=== PATIENT | male | born 1985 | race Caucasian/White ===

== ENCOUNTER 2017-05-15 09:36 | Emergency (ER) | payer MEDICAID, OTHER ==
[2017-05-15 10:01] VITALS: TEMP 98.1
--- NOTE | 2017-05-15 10:09 | C.PDOC ---
History Of Present Illness RECUR L LOWER DENTAL PAIN SINCE YEST. PS PREV DX W IMPACTED WISDOM TOOTH BUT HAS NOT SEEN A DENTIST. NO OTHER ASSOC SX, TRAUMA EXAM MILD DIST HEENT +IMPACTED L 2ND LOWER MOLAR W LOCAL GUM SWELL NO ABSCESS. NO FACIAL SWELL MDM SALT WATER GARGLES, NSAIDS, MOTRIN DENTAL REFERRAL INFORMATION GIVEN Time Seen by Provider: 05/15/17 10:02 Chief Complaint (Nursing): Dental Pain History Per: Patient History/Exam Limitations: no limitations Onset/Duration Of Symptoms: Persistent Current Symptoms Are (Timing): Still Present Past Medical History Reviewed: Historical Data, Nursing Documentation, Vital Signs Vital Signs: Last Vital Signs Temp 98.1 F 05/15/17 10:00 Pulse 75 05/15/17 10:37 Resp 18 05/15/17 10:37 BP 125/72 05/15/17 10:37 Pulse Ox 99 05/15/17 10:37 Family History: States: No Known Family Hx - Social History Hx Alcohol Use: Yes Hx Substance Use: No - Immunization History Hx Tetanus Toxoid Vaccination: No Hx Influenza Vaccination: No Hx Pneumococcal Vaccination: No Review Of Systems Except As Marked, All Systems Reviewed And Found Negative. Constitutional: Negative for: Fever ENT: Positive for: Other ((+) Left lower dental pain). Negative for: Mouth Swelling, Throat Swelling Musculoskeletal: Negative for: Neck Pain Physical Exam - Physical Exam Appears: Non-toxic, In Acute Distress (Mild), Other (No facial swelling.) Skin: Warm, Dry, No Rash Head: Atraumatic, Normacephalic Ear(s): Bilateral: Normal Oral Mucosa: Moist Teeth: Other ((+) Impacted left 2nd lower molar with local gum swelling.) Gingiva: No Swelling, No Abscess Throat: Normal, No Erythema, No Exudate, No Drooling Respiratory: Normal Breath Sounds Neurological/Psych: Oriented x3, Normal Speech, Normal Motor, Normal Sensation Gait: Steady ED Course And Treatment O2 Sat by Pulse Oximetry: 100 (RA) Pulse Ox Interpretation: Normal Medical Decision Making Medical Decision Making: PLAN: * Toradol IM NOTE: * Advised patient to do salt water gargles, NSAIDS and Motrin. * Dental referral information given. Disposition Counseled Patient/Family Regarding: Diagnosis, Need For Followup - Disposition Referrals: YOUR,DENTIST [Other] Disposition: HOME/ ROUTINE Disposition Time: 10:08 Condition: IMPROVED Additional Instructions: SEE A DENTIST [facility] Prescriptions: Acetaminophen [Tylenol Extra Strength] 2 tab PO Q6 #30 tablet Ibuprofen [Motrin] 600 mg PO Q6 #30 tab Instructions: Toothache (ED) Forms: [facility] ([place]), Work Excuse - Clinical Impression Clinical Impression: Dentalgia - Scribe Statement The provider has reviewed the documentation as recorded by the Perryibe Emiliana Mclean Provider Attestation: All medical record entries made by the Lu were at my direction and personally dictated by me. I have reviewed the chart and agree that the record accurately reflects my personal performance of the history, physical exam, medical decision making, and the department course for this patient. I have also personally directed, reviewed, and agree with the discharge instructions and disposition.
[2017-05-15 10:38] VITALS: BP 125/72; PULSE 75; RESP 18
[2017-05-15 10:44] VITALS: O2SAT 100
== END 2017-05-15 10:39 | disposition home or self-care (01) ==
LOC: C.ER 09:36
DX: K01.1 Impacted teeth (principal)
CPT/HCPCS: 96372; 99283; J1885